=== PATIENT | female | born 1960 | race Caucasian/White ===

== ENCOUNTER 2022-08-11 14:36 | Outpatient (CLI) | payer OTHER | END 2022-08-11 14:37 | disposition home or self-care (01) | LOC: BICMAMMO 14:36 | PROVIDERS: ATTEND Nurse Practitioner Family | DX: Z12.31 Encounter for screening mammogram for malignant neoplasm of breast (principal); Z98.890 Other specified postprocedural states | CPT/HCPCS: 77063; 77067 ==